=== PATIENT | female | born 1960 | race Caucasian/White ===

== ENCOUNTER 2024-04-03 11:19 | Emergency (ER) | payer MEDICARE, MEDICAID, SELFPAY ==
[2024-04-03 11:22] VITALS: BP 95/67; PULSE 97; RESP 17; TEMP 36.7; O2SAT 94
[2024-04-03 11:29] VITALS: BMI 27.4
--- NOTE | 2024-04-03 11:57 | PC.NURSE ---
Patient presents to ED via ambulance from [facility] with c/o right lower leg redness and swelling noted since t1thppr ago. Per patient MD decided today leg looked worsened and sent patient in for eval to r/o DVT. Patient is alert and oriented, ambulatory via wheelchair. Noted redness, warm and tender to touch to right lower leg from below the knee down to toe, noted on great toe x3 open wounds, non bloody, nor draining.
--- NOTE | 2024-04-03 12:24 | XR_ITS ---
Examination: Venous duplex lower extremity sonogram, bilateral. Date and time of exam: April 03, 2024 at 1239 hours INDICATIONS: Nonhealing bilateral lower leg ulcers and redness beginning 7 months ago, hypertension history Technique: Multiple sonographic images of the deep venous system have been obtained. B-mode/2-D grayscale imaging of vascular structures and Doppler spectral analysis (waveforms) and color performed Both legs are examined. Findings: Deep venous systems do not demonstrate abnormal echogenicity. All visualized deep veins exhibit compressibility. All visualized deep veins exhibit augmentation. Impression: Negative for deep vein thrombosis
--- NOTE | 2024-04-03 12:25 | PD.EDEXREM ---
ED Extremity Problem RME/HPI General Chief complaint: Extremity Problem,Nontraumatic Stated complaint: DVT Time Seen by Provider: 04/03/24 12:02 Arrival date/time: 04/03/24 11:19 RME / HPI RME / HPI Narrative: 63-year-old female patient with significant history of congestive heart failure diabetes mellitus, hypertension, was brought in by EMS for evaluation regarding bilateral lower leg swelling, chronic wound, for several months. Patient is currently on a transitional home, went to see her PCP, and was advised to come to the emergency room for swelling of the legs and chronic wound. Patient told me that she had this dry skin, swelling, and chronic ulcer to the leg for several months. Patient denies any claudication with ambulation. Patient denies any pain. Denies any fever denies any other complaints. No medication was taken prior to arrival. Related Data Previous Rx's ?Medication ?Instructions ?Recorded atorvastatin 40 mg tablet 40 mg PO QHS #30 tabs 12/20/23 blood sugar diagnostic (Accutrend #50 ea 12/20/23 Glucose test strips) blood-glucose meter (Accu-Chek #1 ea 12/20/23 Guide Glucose Meter) lancets 23 gauge (Comfort EZ #100 ea 12/20/23 Lancets) walker #1 ea 12/20/23 bumetanide 0.5 mg tablet 2 mg (4 x 0.5 mg) PO QDAY 30 days 03/07/24 #120 tabs metformin 500 mg tablet 500 mg PO BID 30 days #60 tabs 03/07/24 metoprolol succinate 25 mg 25 mg PO QDAY 30 days #30 tabs 03/07/24 tablet,extended release 24 hr sacubitril 24 mg-valsartan 26 mg 1 tab PO BID 30 days #60 tabs 03/07/24 tablet (Entresto) spironolactone 25 mg tablet 25 mg PO QDAY 30 days #30 tabs 03/07/24 doxycycline hyclate 100 mg tablet 100 mg PO BID #14 tabs 04/03/24 Allergies Allergy/AdvReac Type Severity Reaction Status Date / Time Sulfa (Sulfonamide Allergy Severe SEVERE Verified 12/20/23 10:28 Antibiotics) RESPIRATORY PROBLEMS codeine Allergy Unknown Verified 12/20/23 10:28 Penicillins Allergy Unknown Verified 12/20/23 10:28 Review of Systems Review of Systems Narrative Review of Systems: Review of system reviewed and within normal limits except mentioned in HPI ED Exam Narrative Physical exam: VITAL SIGNS: Reviewed. GENERAL APPEARANCE: Alert and interactive, follows commands, no acute distress, HEAD AND FACE: Non-traumatic. ENT: PERRL, pink conjunctivitis, eyelid no trauma, Mucous membrane moist. NECK: Supple, nontender, no nuchal rigidity. CHEST: No tenderness, no crepitus, no paradoxical movement, no retractions. LUNGS: Clear, well ventilated, symmetric, no rales, no wheezing, no ronchi, no stridor, good breath sounds bilaterally. HEART: Regular rate, regular rhythm, no murmur, no gallops. ABDOMEN: Soft, positive bowel sounds, nondistended, no guarding, nontender, no rebound, no masses, RECTAL: Deferred. GENITAL: Deferred. NEUROLOGICAL: Gross motor function intact sensory function intact, Appropriate for age. MUSCULOSKELETAL: low back nontender, full range of motion. EXTREMITIES: Bilateral lower leg swelling, +2 on the left +1 on the right, shiny, with wound on the medial aspect of the left lower leg with scabbing, and dry skin noted on the foot with old healing wound. On the left great toe. Nontender, full range of motion. Capillary refill is sluggish bilateral toes. Dorsalis pedis and posterior tibialis pulses barely palpable bilateral. SKIN: Color pink, dry, no rash, no lacerations, no abrasions, no contusions. LYMPHATICS: Deferred. Course Quality Measures none Orders Category Date Time Status CT Screening NOW Care 04/03/24 13:[address] angio abd ilio fem runoff Stat Exams 04/03/24 13:17 Completed US venous doppler LE BI Stat Exams 04/03/24 12:24 Completed B-Type Natriuretic Peptide Stat Lab 04/03/24 12:25 Completed CBC Stat Lab 04/03/24 12:25 Completed Comprehensive Metabolic Panel Stat Lab 04/03/24 12:25 Completed Lactate (Lactic Acid) Stat Lab 04/03/24 12:25 Completed Lactic Acid, 3 HR Stat Lab 04/03/24 16:06 Completed Partial Thromboplastin Time Stat Lab 04/03/24 12:25 Completed Prothrombin Time with INR Stat Lab 04/03/24 12:25 Completed Urinalysis, C/S if Indicated Stat Lab 04/03/24 19:56 Completed Doxycycline [Vibramycin] Med 04/03/24 21:10 Discontinued 100 mg PO X1 ONE Vital Signs Vital signs: Vital Signs Temperature 98.1 F 04/03/24 11:22 Pulse Rate 97 04/03/24 11:22 Respiratory Rate 17 04/03/24 11:22 Blood Pressure 95/67 04/03/24 11:22 Pulse Oximetry (%) 94 L 04/03/24 11:22 Oxygen Delivery Method Room Air 04/03/24 11:22 Extremity Problem MDM Narrative MDM Narrative:: 63-year-old female patient with significant history of congestive heart failure diabetes mellitus, hypertension, was brought in by EMS for evaluation regarding bilateral lower leg swelling, chronic wound, for several months. Patient is currently on a transitional home, went to see her PCP, and was advised to come to the emergency room for swelling of the legs and chronic wound. Patient told me that she had this dry skin, swelling, and chronic ulcer to the leg for several months however noticed some worsening redness, to the right lower extremity for the last few days. Patient denies any claudication with ambulation. Patient denies any pain. Denies any fever denies any other complaints. No medication was taken prior to arrival. Patient's laboratory workup showed no leukocytosis. CT angiogram of the abdomen and pelvis with iliofemoral runoff showed Multiple hzdr-[id number]-tldmdmdi stenoses right superficial femoral artery 90% stenosis distal right popliteal artery 90% stenosis proximal right anterior tibial artery Occlusion right posterior tibial artery 90% stenosis proximal 80% stenosis mid left superficial femoral artery Occlusion left posterior tibial artery. I spoke with vascular surgeon from [facility], Dr Perkins discussed the case in length, including CT angiogram results with iliofemoral runoff, told me that this is a chronic arterial stenosis with occlusion, and patient is not having acute ischemic symptoms right now, patient is not having any cyanosis right now, patient is not having any pain right now, patient can be discharged home and outpatient follow-up with them. I discussed the finding with patient's daughter, her name is Lily, and plan of care, including follow-up with PCP and for referral to vascular surgeon for further intervention regarding patient's arterial stenosis / occlusions as outpatient. I told her that the vascular surgeon in [facility] [place]. Perkins. Patient data External records reviewed:: None Clinical information provided by:: patient Social determinants that could affect healthcare access:: none Patient has the following chronic illnesses:: Hypertension, residual heart failure How is presenting disease/condition affected by chronic disease/condition?: exacerbated by Evaluation data The following diagnostics were reviewed and interpreted by me:: lab results and radiology exam(s) Lab and/or radiology exams considered but not ordered:: None Interpretation Summary: CT angiogram of the abdomen and pelvis with early femoral duct showed Multiple qnmp-ui-zncqglfd stenoses right superficial femoral artery 90% stenosis distal right popliteal artery 90% stenosis proximal right anterior tibial artery Occlusion right posterior tibial artery 90% stenosis proximal 80% stenosis mid left superficial femoral artery Occlusion left posterior tibial artery. Medications / Prescriptions Medications or Prescriptions considered but not ordered:: None Medication administrations:: Medication Administration History Discontinued Medications Doxycycline Hyclate (Doxycycline 100 Mg Tablet) 100 mg PO X1 ONE Stop: 04/03/24 21:11 Doxycycline Consultations Consultation(s) initiated? (list below): No Diagnosis Extremity Problem Differential Diagnosis: cellulitis, deep vein thrombosis of lower extremity and other (Peripheral artery disease) Most likely diagnosis given after review of the tests above:: Peripheral artery disease, cellulitis foot Admission Indicated Admission indicated?: not indicated Admission Request Was there a request for admission?: No Disposition Plan Disposition Plan: Discharge Discharge Attestation Discharge Attestation: The patient and all family members were given an opportunity to ask questions and understood the discharge instructions. Discharge instructions specifically effects, indications for sooner follow up or return to the emergency department, and the expected course of current diagnosis. Patient condition: Stable Discharge Plan Plan Patient Disposition: HOME (Self Care) Disposition Comment: Stable Prescriptions/Referrals Prescriptions/Med Rec: New doxycycline hyclate 100 mg tablet 100 mg PO BID Qty: 14 0RF No Action atorvastatin 40 mg tablet 40 mg PO QHS Qty: 30 3RF (DME) Accutrend Glucose test strips Strip See Rx Instructions .Route Qty: 50 6RF Rx Instructions: As directed (DME) Comfort EZ Lancets 23 gauge misc See Rx Instructions .Route Qty: 100 6RF Rx Instructions: As directed (DME) blood-glucose meter [Accu-Chek Guide Glucose Meter] Misc See Rx Instructions .Route Qty: 1 0RF Rx Instructions: As directed (DME) walker Misc See Rx Instructions .Route Qty: 1 0RF Rx Instructions: WALKER WITH SEAT: The patient has dyspnea on walking 7-8 steps and needs to seat after that. So please provide walker with seat. spironolactone 25 mg Tablet 25 mg PO QDAY 30 Days Qty: 30 0RF bumetanide 0.5 mg Tablet 2 mg PO QDAY 30 Days Qty: 120 0RF metoprolol succinate 25 mg Tablet Extended Release 24 Hr 25 mg PO QDAY 30 Days Qty: 30 0RF Entresto 24-26 mg Tablet 1 tab PO BID 30 Days Qty: 60 0RF metformin 500 mg Tablet 500 mg PO BID 30 Days Qty: 60 0RF Referrals: No Primary/Family,Physician [Primary Care Provider] - In 1 week Problem List Clinical Impression: Cellulitis of foot, Peripheral arterial disease Patient/Caregiver Discharge Instructions Discharge Activity: activity as tolerated Education Materials: ED Cellulitis, ED Peripheral Artery Disease (PAD) Additional Instructions: Thank you for the opportunity for serving you today. You are stable for discharged . You are advised to: Follow-up with your PCP in 1 to 2 days and asked for referral to vascular surgeon regarding your chronic stenosis of your lower extremity arteries Return to ED for worsening of symptoms Increase oral fluids Take medication as prescribed Print Language: Gibraltarian Stand Alone Forms: Johanna Award Info., Patient Portal Info Letter PA/LAWRENCE Supervising Physician PA/LAWRENCE Supervising Physician: MD Brittany
[2024-04-03 12:35] LABS: Lactate (Lactic Acid) 2.6 mMol/L (0.4-2.0)
[2024-04-03 12:40] LABS: Basophils % (Auto) 1 % (0-2.5); Eosinophils # (Auto) 0.1 Thou/mm3 (0.0-0.5); Eosinophils % (Auto) 1 % (0-10); Hematocrit 39.7 % (36.0-46.0); Hemoglobin 12.2 g/dL (12.0-16.0); Immature Granulocytes % (Auto) 0 % (0-0); Immature Granulocytes Auto 0.03 Thou/mm3 (0.00-0.00); Lymphocytes # (Auto) 1.2 Thou/mm3 (1.0-4.8); Lymphocytes % (Auto) 15 % (10-50); Mean Corpuscular HGB Conc 30.7 g/dl (31.0-37.0); Mean Corpuscular Hemoglobin 23.6 pg (25.0-35.0); Mean Corpuscular Volume 77 fL (80-100); Monocytes # (Auto) 0.8 Thou/mm3 (0.0-0.8); Monocytes % (Auto) 10 % (0-12); Neutrophils # (Auto) 5.7 Thou/mm3 (1.8-7.7); Neutrophils % (Auto) 73 % (37-80); Nucleated Red Blood Cell % 0 /100 WBC (0); Platelet Count 409 Thou/mm3 (140-440); RDW Standard Deviation 54.9 fL (36.4-46.3); Red Blood Count 5.18 Miln/mm3 (4.00-5.20); White Blood Count 7.8 Thou/mm3 (3.6-11.0)
[2024-04-03 12:53] LABS: INR 1.1 (0.9-1.3); Partial Thromboplastin Time 27.3 Seconds (22.0-36.0); Prothrombin Time 11.9 Seconds (9.0-12.2)
[2024-04-03 13:03] LABS: B-Type Natriuretic Peptide 3080 pg/mL (0-100)
[2024-04-03 13:10] LABS: Alanine Aminotransferase 13 U/L (10-49); Albumin, Serum 4.4 gm/dL (3.4-4.8); Albumin/Globulin Ratio 1.4 (1.2-2.2); Alkaline Phosphatase 154 U/L (46-116); Anion Gap 9 (7-16); Aspartate Amino Transferase 17 U/L (0-34); BUN/Creatinine Ratio 31 Ratio (12-20); Bilirubin,Total 0.8 mg/dL (0.3-1.2); Blood Urea Nitrogen 34 mg/dL (9-23); Calcium 9.4 mg/dL (8.3-10.6); Calcium (Corrected) 9.4 mg/dL (8.5-10.1); Chloride 101 mMol/L (98-107); Creatinine (Component) 1.1 mg/dL (0.6-1.3); Estimated Creatinine Clearance 51.1 mL/min (>60); Globulin 3.1 gm/dL (2.3-3.5); Glucose 214 mg/dL (74-106); Osmolality,Calculated 285 (275-295); Potassium 4.5 mMol/L (3.4-5.1); Sodium 136 mMol/L (136-145); Total Protein 7.5 gm/dL (5.7-8.2); eGFR 56 See Note
[2024-04-03 13:17] VITALS: BP 111/84; PULSE 91; RESP 21; TEMP 36.4; O2SAT 94
--- NOTE | 2024-04-03 13:17 | XR_ITS ---
Examination: CTA abdominal aorta iliofemoral runoff. 2-D sagittal coronal reconstructions. 3-D reconstructions, vascular April 03, 2024 1533 hours INDICATIONS: Nonhealing leg ulcers one month Technique: Multiple CTA images of the abdominal aorta iliofemoral runoff arterial vessels, 2.0 mm slice thickness, post intravenous administration 130 cc [id number] 2-D sagittal coronal reconstructions. 3-D reconstructions, vascular 3-D postprocessing, including vascular maximum intensity projection images, 3-D volume rendering Low dose protocols were performed. One or more of the following dose reduction techniques were used; automated exposure control, adjustment of the mA and/or KV according to patient size, use of iterative reconstruction technique. Findings: Mild enlargement cardiac contour Liver irregular in contour with mild ascites Suspicious for tiny gallstones Spleen is not enlarged No pancreatic mass Severely scarred bilateral kidneys with subtle areas of nodular enhancement in the left kidney No hydronephrosis No bowel obstruction Tiny fat-containing umbilical hernia No pelvic mass Bladder intact Heavy abdominal aortic calcification No critical stenoses origins celiac or superior mesenteric axes or origins renal arteries No infrarenal abdominal aortic aneurysm Calcifications external iliac common iliac and common femoral arteries Multiple paek-fg-mkigakjt stenoses right superficial femoral artery 90% stenosis distal right popliteal artery 90% stenosis proximal right anterior tibial artery Occlusion right posterior tibial artery 90% stenosis proximal left superficial femoral artery 80% stenosis mid left superficial femoral artery Occlusion left posterior tibial artery Left anterior tibial artery main continuation trunk fill to the ankle IMPRESSION: Multiple [id number]-fh-[id number] stenoses right superficial femoral artery 90% stenosis distal right popliteal artery 90% stenosis proximal right anterior tibial artery Occlusion right posterior tibial artery 90% stenosis proximal 80% stenosis mid left superficial femoral artery Occlusion left posterior tibial artery.
[2024-04-03 15:26] VITALS: BP 93/61; PULSE 94; RESP 18; TEMP 36.6; O2SAT 95
[2024-04-03 15:34] LABS: Reflex Lactate? Y
[2024-04-03 16:20] LABS: Lactic Acid, 3 HR 1.5 mMol/L (0.4-2.0)
[2024-04-03 18:16] VITALS: BP 111/76; PULSE 97; RESP 18; TEMP 36.6; O2SAT 95
[2024-04-03 19:43] VITALS: BP 97/64; PULSE 104; RESP 18; O2SAT 94
[2024-04-03 20:15] LABS: Collection Type, Urine Clean Catch
[2024-04-03 20:31] LABS: Bilirubin,Urine Negative (Negative); Blood,Urine Negative (Negative); Clarity,Urine Clear (Clear/Hazy); Color,Urine Lt-Yellow (Lt Yel-Yel); Culture Indicated,Urine Not Indicated; Glucose, Urine Negative (Negative); Ketones,Urine Negative (Negative); Leukocyte Esterase,Urine Negative (Negative); Nitrite,Urine Negative (Negative); PH,Urine 6.5 (5.0-7.0); Protein,Urine 1+ (Neg - Trace); RBC,Urine 3 /hpf (0-3); Specific Gravity,Urine 1.039 (1.001-1.035); Squamous Epithelial Cell,Urine 1 /hpf (0-5); Urobilinogen,Urine Negative mg/dL (0.0-1.0); WBC,Urine < 1 /hpf (0-5)
[2024-04-03] MEDS: DOXYCYCLINE 100 MG TABLET PO (22:29)
--- NOTE | 2024-04-03 22:44 | PC.NURSE ---
[facility]
== END 2024-04-03 23:14 | disposition home or self-care (01) ==
PROVIDERS: Nurse Practitioner Family; Emergency Provider Emergency Medicine
DX: E11.51 Type 2 diabetes mellitus with diabetic peripheral angiopathy without gangrene (principal); I73.9 Peripheral vascular disease, unspecified; L03.116 Cellulitis of left lower limb; L03.115 Cellulitis of right lower limb; Z79.84 Long term (current) use of oral hypoglycemic drugs
CPT/HCPCS: 36415; 75635; 80053; 81001; 83605; 83880; 85025; 85610; 85730; 93970; 99285; A4649; Q9967; A9270

== ENCOUNTER 2024-07-09 14:27 | Outpatient (AMB) | payer MEDICARE, MEDICAID, SELFPAY ==
[2024-07-09 14:37] VITALS: BP 83/55; PULSE 103; RESP 16; TEMP 36.8; O2SAT 93; BMI 25.8
--- NOTE | 2024-07-09 14:37 | PD.RESCLINIC ---
Vital Signs 07/09/24 14:37 Height 1.57 m Height Method Stated Weight 64.07 kg Weight Measurement Method Standing Scale BMI 25.8 BP 83/55 L Blood Pressure Source Automatic Cuff Blood Pressure Location Right Upper Arm Position Sitting Respiration 16 Pulse 103 H Pulse Source Monitor Temp 98.2 F Temp Source Temporal Artery Scan Pulse Oximetry (%) 93 L Oxygen Delivery Method Room Air Allergies/Meds Allergies & Medications Allergies Sulfa (Sulfonamide Antibiotics) Allergy (Severe, Verified 07/09/24 14:41) SEVERE RESPIRATORY PROBLEMS codeine Allergy (Unknown, Verified 07/09/24 14:41) Penicillins Allergy (Unknown, Verified 07/09/24 14:41) Medication Reconciliation atorvastatin 40 mg tablet 40 mg PO QHS #30 tabs 12/20/23 [Rx Confirmed 07/09/24] blood sugar diagnostic (Accutrend Glucose test strips) #50 ea 12/20/23 [Rx Confirmed 07/09/24] blood-glucose meter (Accu-Chek Guide Glucose Meter) #1 ea 12/20/23 [Rx Confirmed 07/09/24] lancets 23 gauge (Comfort EZ Lancets) #100 ea 12/20/23 [Rx Confirmed 07/09/24] walker #1 ea 12/20/23 [Rx Confirmed 07/09/24] doxycycline hyclate 100 mg tablet 100 mg PO BID #14 tabs 04/03/24 [Rx Confirmed 07/09/24] acetaminophen 500 mg tablet (Tylenol Extra Strength) 500 mg PO Q8HR PRN pain 30 days #90 tabs 07/09/24 [Rx] atorvastatin 40 mg tablet 40 mg PO QHS 30 days #30 tabs 07/09/24 [Rx] bumetanide 1 mg tablet 1 mg PO QDAY #30 tabs 07/09/24 [Rx] cyclobenzaprine 5 mg tablet 5 mg PO TID PRN muscle spasm #30 tabs 07/09/24 [Rx] metformin 500 mg tablet 500 mg PO BID #60 tabs 07/09/24 [Rx] metoprolol succinate 25 mg tablet,extended release 24 hr 25 mg PO QDAY #30 tabs 07/09/24 [Rx] ondansetron HCl 4 mg tablet 4 mg PO Q6H PRN nausea and vomiting #90 tabs 07/09/24 [Rx] sacubitril 24 mg-valsartan 26 mg tablet (Entresto) 1 tab PO BID #60 tabs 07/09/24 [Rx] spironolactone 25 mg tablet 25 mg PO QDAY #30 tabs 07/09/24 [Rx] MA Intake Visit Data Collection New Patient or Established: Established Patient (seen at [facility] within 3 years) Seen by Clinical Staff ONLY (RN/MA): No Pain Present Currently: No Pain scale:: 0 Pain Scale Used: Baird-Liz/Numerical Terrazzo Polisher Required: No PCP or OBGYN visit in last 3 months: No Hx Now: No Do You Feel Safe at Home: Yes Authorities Contacted: N/A Smoking Status Smoking Status: Former smoker Immunization / Flu Flu Vaccine in the Last 12 Months: No Flu Vaccine Exclusion Criteria: No Exclusion Criteria Past Medical History Past Medical History NEUROLOGIC: Negative Dementia, Alzheimer's Disease, Seizures, Epilepsy or Head Trauma CARDIAC: Positive Hypercholesterolemia, Edema and Hypertension; Negative Cardiac Disorders, Angina or Congestive Heart Failure RESPIRATORY: Positive Asthma; Negative Chronic Obstructive Pulmonary Disease (COPD) or Sleep Apnea GASTROINTESTINAL: Positive Ulcer; Negative Gastrointestinal Disorders, Gall Bladder Disease or Hemorrhoids GENITOURINARY: Negative Genitourinary Disorders or Renal Disease REPRODUCTIVE: Negative Genital Herpes, Gonorrhea, Pelvic Inflammatory Disease or Syphilis MUSCULOSKELETAL: Positive Degenerative Disk Disease and Carpal Tunnel Syndrome; Negative Osteoporosis ENT: Negative Glaucoma, Ear Infection or Head Trauma ENDOCRINE: Positive Endocrine Disorders and Diabetes Mellitus Type 2; Negative Diabetes Mellitus Type 1 HEMATOLOGIC: Negative Blood Disorders, Anemia or Sickle Cell Disease PSYCHO/SOCIAL: Negative Depression, Anxiety or Post Traumatic Stress Disorder OTHER HISTORY: Negative Hospitalization, Falls, Blood Transfusions, Anesthesia Reactions, Chicken Pox, Cancer or Lung Cancer Family History FAMILY HISTORY: Negative Family Cardiac Disorders Surgical History SURGICAL: Positive Mastectomy and Section; Negative Cardiac Surgery, Open Heart Surgery, Cardiac Catheterization, Pacemaker, Endocrine Surgery, Ear Surgery, Abdominal Surgery, Nephrectomy or Joint Replacement Social History SMOKING STATUS: Smoking status: Former smoker SECOND HAND EXPOSURE: second hand exposure: No ALCOHOL: Alcohol Intake: Never ALCOHOL FREQUENCY: Alcohol Intake Frequency: A Few Times a Month HOUSING: Housing: Mobile Home LIVES WITH: Lives With: Alone Patient Portal Questionyaakov Social History Living Situation History Housing: Mobile Home Housing Other:: Patient resides alone with her dog. Tobacco History Smoking Status: Former smoker Packs per Day: 1 Second Hand Smoke Exposure: No Alcohol History Alcohol Intake: Never Alcohol Intake Frequency: A Few Times a Month Substance Use History Substance Use: meth Domestic Abuse History Do You Feel Safe at Home: Yes Review of Systems Report any current symptoms Only answer those that you have currently: Past Medical History Past Medical History Have you ever been diagnosed with any of the following: Neurological Problems Dementia: No Alzheimer's Disease: No Seizures: No Epilepsy: No Head Trauma: No Cardiology Problems Angina: No Hypercholesterolemia: Yes Congestive Heart Failure: No Edema: Yes Hypertension: Yes Respiratory Problems Chronic Obstructive Pulmonary Disease (COPD): No Asthma: Yes Sleep Apnea: No Stomache/Intestinal Problems Gall Bladder Disease: No Ulcer: Yes Hemorrhoids: No Genital/Urinary Problems Renal Disease: No Reproductive Problems Genital Herpes: No Gonorrhea: No Pelvic Inflammatory Disease: No Syphilis: No Musculoskeletal Problems Osteoporosis: No Degenerative Disk Disease: Yes Carpal Tunnel Syndrome: Yes Head,Eye,Nose,Throat Problems Glaucoma: No Chronic Ear Infections: No Endocrine Problems Diabetes Mellitus Type 1: No Diabetes Mellitus Type 2: Yes Blood Problems Anemia: No Sickle Cell Disease: No Psychologic Problems Depression: No Anxiety: No Post Traumatic Stress Disorder: No Other Problems Hospitalization: No Falls: No Blood Transfusions: No Anesthesia Reactions: No Chicken Pox: No Cancer: No Lung Cancer: No Surgical History Pacemaker: No History of Present Illness HPI Narrative Germania Avina is a 63-year-old female with a past medical history of hypertension, hyperlipidemia, type 2 diabetes mellitus, COPD, HFrEF (EF 30% on 02/2024), and PAD who presents to [facility] with her daughter for home health referral for physical therapy. She was recently discharged from [facility] on 02/2024, in which she was found to have an acute compression fracture of L3 lumbar spine, and was then [facility] until mid May. While there, she was sent to the ED to be evaluated for chronic lower extremity wounds and was found to have PAD diagnosed by CTA with runoff on 03/2024. She was making good progress with rehab, but since leaving she has started to become more weak per daughter, hence prompting visit for home health referral. Of note, patient has already seen a vascular surgeon who recommended to undergo additional imaging to further evaluate blood flow to legs. She is also seeing an orthopedic surgeon who believes she may have a rotator cuff tear and is to undergo MRI for further evaluation. Otherwise, no other complaints and medication refills sent for 1 month until patient can then establish care with [facility] in July. Blood pressure also noted to be 83/55 in clinic and advised to obtain blood pressure cuff in order to monitor daily. Advised to hold taking Bumex 1 mg daily if BP is less than 90/60 and to be cautious when moving or standing from seated position given recently diagnosed PAD and weakness after leaving rehab center. Review of Systems Review of Systems Systems Reviewed: All systems reviewed, normal except as documented Objective/Exam Narrative Physical exam: General: AOx3, in wheelchair, no acute distress, able to speak full sentences HEENT: NC/AT, mucous membranes moist, bilateral sclera anicteric Cardiovascular: regular rate and rhythm, S1/S2 present, no murmurs appreciated Pulmonary: clear to auscultation bilaterally, no rales/rhonchi/wheezes Abdominal: soft, non-tender, non-distended, no rebound/guarding, normal bowel sounds present Musculoskeletal: peripheral edema Skin: warm and dry, intact, no rashes Head Head exam: atraumatic Assessment & Plan Diagnosis / Problem List (1) Compression fracture of lumbar vertebra: Status: Acute Qualifiers: Lumbar vertebra fracture level: L3 Encounter type: subsequent encounter Fracture healing: with routine healing Qualified Code(s): S32.030D - Wedge compression fracture of third lumbar vertebra, subsequent encounter for fracture with routine healing Assessment & Plan: Diagnosed in 02/2024 and has undergone PT at [facility] from February until mid May and comes to [facility] for referral to home health in order to continue PT. Plan: - PT and home health referral sent - Home health agency to reach out to patient (2) Rotator cuff rupture: Status: Acute Qualifiers: Rotator cuff tear extent: unspecified tear extent Rotator cuff tear trauma status: unspecified whether traumatic Laterality: right Qualified Code(s): M75.101 - Unspecified rotator cuff tear or rupture of right shoulder, not specified as traumatic Plan: - Follow-up with orthopedic surgeon - Follow-up MRI per orthopedic surgeon (3) CHF (congestive heart failure): Status: Acute Qualifiers: Heart failure type: systolic Heart failure chronicity: chronic Qualified Code(s): I50.22 - Chronic systolic (congestive) heart failure Assessment & Plan: Companesated as there is no SOB or crackles/BLE edema on exam Plan: - Continue GDMT - metoprolol succinate ER 25 mg daily - spironolactone 25 mg daily - entresto 24-26 mg BID Office Procedures [facility] Level of Care Nursing/Assessment Patient Status: Established Patient Nursing Assessment/Reassessment: Medication Reconciliation, Update PMH in EMR and Vital Signs Coordination of Care: Complex Care and Chronic Disease 1-5, Consent,records obtained, informed consent, Education Simp Pt/Fam, Ref for ancillary service and Staff clarify orders Established Patient Charge Established Patient Point Assignment: 105 Established Patient Point Charge: EP Level 3 (80-115)
== END 2024-07-09 15:00 | disposition home or self-care (01) ==
LOC: HODAHC 14:27
PROVIDERS: Supervising Provider Internal Medicine
DX: S32.030D Wedge compression fracture of third lumbar vertebra, subsequent encounter for fracture with routine healing (principal); X58.XXXD Exposure to other specified factors, subsequent encounter; M75.101 Unspecified rotator cuff tear or rupture of right shoulder, not specified as traumatic; I11.0 Hypertensive heart disease with heart failure; I50.9 Heart failure, unspecified; E11.9 Type 2 diabetes mellitus without complications; J44.9 Chronic obstructive pulmonary disease, unspecified; I73.9 Peripheral vascular disease, unspecified
CPT/HCPCS: 99213; G0463

== ENCOUNTER → 2024-07-10 | Outpatient (CLI) | payer MEDICARE, MEDICAID, SELFPAY ==
[2024-07-09 18:55] LABS: Blood Urea Nitrogen 36 mg/dL (9-23); Creatinine (Component) 1.1 mg/dL (0.6-1.3); eGFR 56 See Note
--- NOTE | 2024-07-10 11:30 | XR_ITS ---
Examination: CTA abdominal aorta iliofemoral runoff. 2-D sagittal coronal reconstructions. 3-D reconstructions, vascular Exam date and time: 2024 1202 hrs. Indications: Bilateral leg swelling and pain beginning one year ago Technique: Multiple CTA images of the abdominal aorta iliofemoral runoff arterial vessels, 2.0 mm slice thickness, post intravenous administration 130 cc [id number] 2-D sagittal coronal reconstructions. 3-D reconstructions, vascular 3-D postprocessing, including vascular maximum intensity projection images, 3-D volume rendering Low dose protocols were performed. One or more of the following dose reduction techniques were used; automated exposure control, adjustment of the mA and/or KV according to patient size, use of iterative reconstruction technique. Findings: Mild enlargement cardiac contour Liver is irregular in contour with fatty infiltration No gallstones Posterior left renal irregularity enhancing mass 5.3 x 4.8 cm No bowel obstruction. Normal appendix Colonic diverticulosis Intact urinary bladder Calcification abdominal aorta no aneurysm dilatation No critical stenoses common iliac and external iliac or common femoral arteries 50% stenosis short segment distal right superficial femoral artery axial image 123 Attenuated popliteal artery with 70% stenosis distal right popliteal artery image 531 Occlusion right posterior tibial artery proximally Severely attenuated right anterior tibial and main continuation trunk, no filling of the distal most right anterior tibial artery 90% stenosis proximal left superficial femoral artery axial image 294 90% short segment stenosis mid left superficial femoral artery axial image 397 Attenuated popliteal artery Occlusion proximal left posterior tibial artery Severely attenuated anterior tibial and main continuation trunk arteries with no filling of either artery distally Impression: Significant stenoses bilateral superficial femoral arteries Severe obstructive arterial disease and trifurcation arteries bilaterally
== END | disposition home or self-care (01) ==
PROVIDERS: Referring Provider Surgery Vascular Surgery; Visit Provider Surgery Vascular Surgery
DX: I70.213 Atherosclerosis of native arteries of extremities with intermittent claudication, bilateral legs (principal); I77.6 Arteritis, unspecified
CPT/HCPCS: 36415; 75635; 82565; 84520; A4649; Q9967

== ENCOUNTER → 2024-10-22 | Outpatient (CLI) | payer MEDICARE, MEDICAID, SELFPAY ==
--- NOTE | 2024-10-22 14:00 | XR_ITS ---
Examination: CT chest, without intravenous contrast. Sagittal and coronal 2-D reconstructions. Exam date and time: October 22, 2024 1506 hours INDICATIONS: Smoking history 47 years COMPARISON: December 18, 2023 CTDI:vol (mGy) 10.3 DLP: (mGycm) 356 Technique: Multiple 3.0 mm axial sections of the chest to been obtained. Bone and lung density settings are obtained. Sagittal and coronal 2-D reconstructions have been obtained. Low dose protocols were performed. One or more of the following dose reduction techniques were used; automated exposure control, adjustment of the mA and/or KV according to patient size, use of iterative reconstruction technique. Findings: No thoracic aortic aneurysm dilatation Pulmonary artery segments are not enlarged Heavy mitral valvular calcification 3 mm pleural-based pulmonary nodule left lower lobe image 148 8mm pulmonary nodule right lower lobe image 149 2 mm pulmonary nodule right middle lobe image 191 Small right pleural effusion No visualized liver or splenic lesions Nodular thickening left adrenal gland IMPRESSION: Noncalcified pulmonary nodules as above, recommend continued 6 month follow-up CT chest without contrast
--- NOTE | 2024-10-22 14:14 | XR_ITS ---
Examination: Shoulder,right, 3 views Technique: Shoulder AP internal rotation, AP external rotation, Y view shoulder, 3 views Exam date and time :October 22, 2024 1422 hours INDICATIONS: Patient fell 6 months ago with injury to the shoulder, shoulder pain. FINDINGS: Prominent osteopenia. Moderate to advanced narrowing glenohumeral joint No shoulder fracture or dislocation IMPRESSION: No shoulder fracture or dislocation
--- NOTE | 2024-10-22 14:14 | XR_ITS ---
Examination: Right wrist 2 views Technique one AP lateral right wrist 2 views Date and time: October 22, 2024 1437 hours INDICATIONS: Patient fell 6 months ago with intravenous, wrist pain. FINDINGS: Prominent osteopenia No acute fracture No wrist dislocation IMPRESSION: No acute fracture Mild to moderate osteoarthritis first carpometacarpal joint
--- NOTE | 2024-10-22 14:14 | XR_ITS ---
Examination: Hand, right 3 views Technique: Hand AP, oblique, lateral 3 views Date and time of exam: October 22, 2024 1422 hours INDICATIONS: Patient fell 6 months ago with into the right hand, right hand pain. FINDINGS: Moderate osteopenia. Mild to moderate osteoarthritis first carpometacarpal joint, interphalangeal joint first digit, distal interphalangeal joints second through fifth digits Old deformity ungual tuft tip distal phalanx index finger IMPRESSION: Osteoarthritis as above
== END | disposition home or self-care (01) ==
PROVIDERS: PCP Internal Medicine; Referring Provider Internal Medicine; Visit Provider Internal Medicine
DX: S49.91XA Unspecified injury of right shoulder and upper arm, initial encounter (principal); M18.11 Unilateral primary osteoarthritis of first carpometacarpal joint, right hand; X58.XXXA Exposure to other specified factors, initial encounter; R91.8 Other nonspecific abnormal finding of lung field; F17.210 Nicotine dependence, cigarettes, uncomplicated
CPT/HCPCS: 71250; 73030; 73100; 73130

== ENCOUNTER → 2024-11-04 | Outpatient (CLI) | payer MEDICARE, MEDICAID, SELFPAY ==
--- NOTE | 2024-11-04 16:54 | XR_ITS ---
Examination: PA lateral chest 2 views Technique whereby PA lateral chest 2 views Date and time: November 04, 2024 1703 hours Comparison February 29, 2024 INDICATIONS: Coughing shortness of breath beginning 2 months ago. FINDINGS: Normal heart size 30 mm possible pulmonary nodule in the left upper lobe Prominent hilar regions 10 mm 4 mm pulmonary nodules right upper lobe No left-sided rib fractures IMPRESSION: Recommend CT chest without contrast follow-up to confirm bilateral pulmonary masses
== END | disposition home or self-care (01) ==
PROVIDERS: PCP Internal Medicine
DX: R91.8 Other nonspecific abnormal finding of lung field (principal)
CPT/HCPCS: 71046

== ENCOUNTER 2024-11-23 19:54 | Emergency (ER) | payer MEDICARE, MEDICAID, SELFPAY ==
[2024-11-23 20:06] VITALS: BP 114/78; PULSE 106; PULSE 71; RESP 15; RESP 16; TEMP 36.6; O2SAT 97; O2SAT 99; BMI 26.6
--- NOTE | 2024-11-23 20:17 | PD.EDGIBLD ---
ED GI Bleed RME/HPI General Chief complaint: Nausea/Vomiting/Diarrhea Stated complaint: VOMITTING Time Seen by Provider: 11/23/24 20:10 Arrival date/time: 11/23/24 19:54 RME / HPI RME / HPI Narrative: DR. PICKETT MAIN ED EVALUATION: 64 y/o female with Hx of smoking, alcohol and recreational drug use, and CHF presents to ED c/o coffee ground emesis x approximately 24 hours. Denies tarry or bloody stool. Denies abdominal pain. Denies history of stomach bleed or ulcer. Also denies use of blood thinner. Patient is medication compliant but admits to not taking her medications today. No other cocnerns or complaints expressed at this time. Related Data Previous Rx's ?Medication ?Instructions ?Recorded atorvastatin 40 mg tablet 40 mg PO QHS #30 tabs 12/20/23 walker #1 ea 12/20/23 doxycycline hyclate 100 mg tablet 100 mg PO BID #14 tabs 04/03/24 bumetanide 1 mg tablet 1 mg PO QDAY #30 tabs 07/09/24 cyclobenzaprine 5 mg tablet 5 mg PO TID PRN muscle spasm #30 07/09/24 tabs metformin 500 mg tablet 500 mg PO BID #60 tabs 07/09/24 metoprolol succinate 25 mg 25 mg PO QDAY #30 tabs 07/09/24 tablet,extended release 24 hr ondansetron HCl 4 mg tablet 4 mg PO Q6H PRN nausea and 07/09/24 vomiting #90 tabs sacubitril 24 mg-valsartan 26 mg 1 tab PO BID #60 tabs 07/09/24 tablet (Entresto) spironolactone 25 mg tablet 25 mg PO QDAY #30 tabs 07/09/24 blood sugar diagnostic (Accutrend #50 ea 07/16/24 Glucose test strips) blood-glucose meter (Accu-Chek #1 ea 07/16/24 Guide Glucose Meter) lancets 23 gauge (Comfort EZ #100 ea 07/16/24 Lancets) ondansetron 4 mg disintegrating 4 mg PO Q6H PRN nausea and 11/23/24 tablet vomiting #20 tabs pantoprazole 40 mg tablet,delayed 40 mg PO QDAY #30 tabs 11/23/24 release (Protonix) Allergies Allergy/AdvReac Type Severity Reaction Status Date / Time Sulfa (Sulfonamide Allergy Severe SEVERE Verified 07/09/24 14:41 Antibiotics) RESPIRATORY PROBLEMS codeine Allergy Unknown Verified 07/09/24 14:41 Penicillins Allergy Unknown Verified 07/09/24 14:41 Review of Systems Review of Systems Systems Reviewed: All systems reviewed, normal except as documented Past Medical History Past Medical History CARDIAC: Positive Hypercholesterolemia, Edema and Hypertension RESPIRATORY: Positive Asthma GASTROINTESTINAL: Positive Ulcer MUSCULOSKELETAL: Positive Degenerative Disk Disease and Carpal Tunnel Syndrome ENDOCRINE: Positive Endocrine Disorders and Diabetes Mellitus Type 2 Surgical History SURGICAL: Positive Mastectomy and Section Social History SMOKING STATUS: Current every day smoker SUBSTANCE USE: unknown SUBSTANCE LAST USED: unknown ALCOHOL: Current ED Exam Narrative Physical exam: Generally patient is alert slightly ill-appearing but no obvious distress heart shows a heart rate of approximately 100 and in a regular rhythm, lungs clear to auscultation equal bilaterally abdomen soft bowel sounds present nondistended and nontender. Skin is warm pale and dry rectal exam done with sap basis consultant shows light brown-colored stool no gross blood guaiac negative neurologic exam shows no focal motor deficits. Course Quality Measures none Orders Category Date Time Status CBC Stat Lab 11/23/24 20:18 Completed CMP [Comprehensive Metabolic Panel] Stat Lab 11/23/24 20:18 Completed PT [Prothrombin Time with INR] Stat Lab 11/23/24 20:18 Completed Ondansetron Inj [Zofran Inj] Med 11/23/24 20:19 Discontinued 4 mg IVP X1 ONE Pantoprazole Inj [Protonix Inj] Med 11/23/24 20:19 Discontinued 40 mg IVP X1 ONE Vital Signs Vital signs: Vital Signs Temperature 97.8 F 11/23/24 20:06 Pulse Rate 106 H 11/23/24 20:06 Respiratory Rate 16 11/23/24 20:06 Blood Pressure 114/78 11/23/24 20:06 Pulse Oximetry (%) 97 11/23/24 20:06 Oxygen Delivery Method Room Air 11/23/24 20:06 PROCEDURES: Stool Hemoccult Procedural Steps Taken: stool placed in appropriate test area, developer placed on stool and control areas and controls appropriately positive and negative Hemoccult result: negative GI Bleed MDM Narrative MDM Narrative:: Scribe Attestation: Brooke Rey am scribing for and in the presence of Dr. Pickett. Provider Notation: Although this document has been carefully reviewed, there may still be some phonetic and other typographical errors.? These errors are purely grammatical due to imperfections in the software program and should not be construed in any way to? compromise the substance of the patient's medical care during this visit. Patient is not anemic with a hemoglobin at 13. Platelet count is normal. PTT is normal. BUN is 26 with a previous BUN of 36. Patient did not vomit here in the emergency room. She was given Zofran 4 mg IV and Protonix 40 mg IV. She is not hypotensive. She may have a degree of gastritis. She will be discharged on Zofran and Protonix to be taken as prescribed. Follow-up with her doctor. Return to ER as needed or if condition worsens. Patient data External records reviewed:: [facility] previous records (Reviewed prior ED records from 04/03/24 12:25 Cellulitis of foot.) and EMS form Clinical information provided by:: patient and EMS Social determinants that could affect healthcare access:: substance use (and alcohol use) Patient has the following chronic illnesses:: Hypercholesterolemia, Edema, Hypertension, Asthma, Ulcer, Degenerative Disk Disease, Carpal Tunnel Syndrome, Diabetes Mellitus Type 2 How is presenting disease/condition affected by chronic disease/condition?: exacerbated by Evaluation data The following diagnostics were reviewed and interpreted by me:: lab results Lab and/or radiology exams considered but not ordered:: None Interpretation Summary: None Medications / Prescriptions Medications or Prescriptions considered but not ordered:: None Medication administrations:: Medication Administration History Discontinued Medications Ondansetron HCl (Ondansetron Inj 2 Mg/Ml Inj 2 Ml) 4 mg IVP X1 ONE; Protocol Stop: 11/23/24 20:20 Last Admin: 11/23/24 20:37 Dose: 4 mg Documented By: EVELYN Pantoprazole Sodium (Pantoprazole Inj 40 Mg Vial) 40 mg IVP X1 ONE Stop: 11/23/24 20:20 Last Admin: 11/23/24 20:37 Dose: 40 mg Documented By: EVELYN See above if any. Consultations Consultation(s) initiated? (list below): No Diagnosis GI bleed differential diagnosis: esophageal varices, gastritis and Upper gastrointestinal hemorrhage Most likely diagnosis given after review of the tests above:: None Admission Indicated Admission indicated?: not indicated Explain why admission is indicated or not indicated:: Patient does not meet admission criteria. Admission Request Was there a request for admission?: No Disposition Plan Disposition Plan: Discharge Discharge Attestation Discharge Attestation: The patient and all family members were given an opportunity to ask questions and understood the discharge instructions. Discharge instructions specifically effects, indications for sooner follow up or return to the emergency department, and the expected course of current diagnosis. Patient condition: Stable Discharge Plan Plan Patient Disposition: HOME (Self Care) Prescriptions/Referrals Prescriptions/Med Rec: New ondansetron 4 mg tablet,disintegrating 4 mg PO Q6H PRN (Reason: nausea and vomiting) Qty: 20 0RF pantoprazole [Protonix] 40 mg tablet,delayed release (DR/EC) 40 mg PO QDAY Qty: 30 0RF No Action atorvastatin 40 mg tablet 40 mg PO QHS Qty: 30 3RF (DME) walker Misc See Rx Instructions .Route Qty: 1 0RF Rx Instructions: WALKER WITH SEAT: The patient has dyspnea on walking 7-8 steps and needs to seat after that. So please provide walker with seat. ondansetron HCl 4 mg tablet 4 mg PO Q6H PRN (Reason: nausea and vomiting) Qty: 90 0RF cyclobenzaprine 5 mg tablet 5 mg PO TID PRN (Reason: muscle spasm) Qty: 30 0RF metoprolol succinate 25 mg tablet extended release 24 hr 25 mg PO QDAY Qty: 30 0RF metformin 500 mg tablet 500 mg PO BID Qty: 60 0RF spironolactone 25 mg tablet 25 mg PO QDAY Qty: 30 0RF Entresto 24-26 mg tablet 1 tab PO BID Qty: 60 0RF bumetanide 1 mg tablet 1 mg PO QDAY Qty: 30 0RF (DME) Accutrend Glucose test strips Strip See Rx Instructions .Route Qty: 50 6RF Rx Instructions: As directed (DME) blood-glucose meter [Accu-Chek Guide Glucose Meter] Misc See Rx Instructions .Route Qty: 1 0RF Rx Instructions: As directed (DME) Comfort EZ Lancets 23 gauge misc See Rx Instructions .Route Qty: 100 6RF Rx Instructions: As directed doxycycline hyclate 100 mg tablet 100 mg PO BID Qty: 14 0RF Referrals: No Primary/Family,Physician [Primary Care Provider] - In 1 week Problem List Clinical Impression: UGIB (upper gastrointestinal bleed), Gastritis Patient/Caregiver Discharge Instructions Print Language: Swiss Stand Alone Forms: Johanna Award Info., Patient Portal Info Letter
[2024-11-23 20:36] LABS: Basophils # (Auto) 0.0 Thou/mm3 (0.0-0.2); Basophils % (Auto) 0 % (0-2.5); Eosinophils # (Auto) 0.0 Thou/mm3 (0.0-0.5); Eosinophils % (Auto) 0 % (0-10); Hematocrit 42.9 % (36.0-46.0); Hemoglobin 13.8 g/dL (12.0-16.0); Immature Granulocytes Auto 0.05 Thou/mm3 (0.00-0.00); Lymphocytes # (Auto) 1.2 Thou/mm3 (1.0-4.8); Lymphocytes % (Auto) 10 % (10-50); Mean Corpuscular HGB Conc 32.2 g/dl (31.0-37.0); Mean Corpuscular Hemoglobin 27.4 pg (25.0-35.0); Mean Corpuscular Volume 85 fL (80-100); Monocytes # (Auto) 0.9 Thou/mm3 (0.0-0.8); Monocytes % (Auto) 7 % (0-12); Neutrophils # (Auto) 9.7 Thou/mm3 (1.8-7.7); Neutrophils % (Auto) 82 % (37-80); Nucleated Red Blood Cell # 0.00 Thou/mm3 (0.00-0.00); Nucleated Red Blood Cell % 0 /100 WBC (0); Platelet Count 445 Thou/mm3 (140-440); RDW Standard Deviation 46.1 fL (36.4-46.3); Red Blood Count 5.03 Miln/mm3 (4.00-5.20); White Blood Count 11.9 Thou/mm3 (3.6-11.0)
[2024-11-23] MEDS: ONDANSETRON INJ 2 MG/ML INJ 2 ML 4 MG IVP (20:37)
[2024-11-23 20:47] LABS: INR 1.1 (0.9-1.3); Prothrombin Time 12.0 Seconds (9.0-12.2)
[2024-11-23 20:51] LABS: Alanine Aminotransferase 8 U/L (10-49); Albumin, Serum 4.1 gm/dL (3.4-4.8); Albumin/Globulin Ratio 1.3 (1.2-2.2); Alkaline Phosphatase 76 U/L (46-116); Anion Gap 12 (7-16); Aspartate Amino Transferase 22 U/L (0-34); BUN/Creatinine Ratio 26 Ratio (12-20); Bilirubin,Total 0.5 mg/dL (0.3-1.2); Blood Urea Nitrogen 26 mg/dL (9-23); Calcium 9.2 mg/dL (8.3-10.6); Calcium (Corrected) 9.2 mg/dL (8.5-10.1); Carbon Dioxide 27.5 mMol/L (20.0-31.0); Chloride 104 mMol/L (98-107); Creatinine (Component) 1.0 mg/dL (0.6-1.3); Estimated Creatinine Clearance 50.7 mL/min (>60); Globulin 3.1 gm/dL (2.3-3.5); Glucose 152 mg/dL (74-106); Osmolality,Calculated 292 (275-295); Potassium 4.3 mMol/L (3.4-5.1); Sodium 143 mMol/L (136-145); Total Protein 7.2 gm/dL (5.7-8.2); eGFR > 60 See Note
== END 2024-11-23 22:22 | disposition home or self-care (01) ==
PROVIDERS: Emergency Provider Emergency Medicine
DX: K29.71 Gastritis, unspecified, with bleeding (principal)
CPT/HCPCS: 36415; 80053; 85025; 85610; 96374; 96375; 99284; J2405; J2470

== ENCOUNTER 2024-11-25 17:05 | Emergency (ER) | payer MEDICARE, MEDICAID, SELFPAY ==
[2024-11-25 17:07] VITALS: BMI 27.1
[2024-11-25 17:24] VITALS: BP 106/71; PULSE 97; RESP 18; TEMP 36.3; O2SAT 96
--- NOTE | 2024-11-25 17:50 | XR_ITS ---
Examination: CT brain head without contrast. 2-D sagittal coronal reconstructions Date and time of exam:November 25, 2024 at 1803 hours Comparison February 11, 2014 INDICATIONS: Ataxia beginning 2 days ago CTDI: vol (mGy):49.2 DLP: (mGycm): Her 97 Technique: Multiple CT axial sections of the brain have been obtained, 5 mm slice thickness. Contrast has not been administered. 2-D sagittal, coronal reconstructions have been obtained Low dose protocols were performed. One or more of the following dose reduction techniques were used; automated exposure control, adjustment of the mA and/or KV according to patient size, use of iterative reconstruction technique. 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 Basal cisterns are not remarkable. Fourth ventricle is midline. Cranial vault intact. 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
--- NOTE | 2024-11-25 17:51 | PD.EDRME ---
Rapid Medical Screening Exam RME Arrival date/time: 11/25/24 17:05 Chief Complaint: General Adult/Misc Complain Time Seen by Provider: 11/25/24 17:19 Vital signs: Vital Signs Temperature 97.4 F 11/25/24 17:24 Pulse Rate 97 11/25/24 17:24 Respiratory Rate 18 11/25/24 17:24 Blood Pressure 106/71 11/25/24 17:24 Pulse Oximetry (%) 96 11/25/24 17:24 Oxygen Delivery Method Room Air 11/25/24 17:24 Vital signs reviewed by provider: Yes RME Narrative: 64-year-old female presents to the ED with a complaint of shaking. She was seen here on Sunday as well as earlier today. Earlier today her only complaint was nausea vomiting and left-sided abdominal pain. Her workup was essentially negative. CBC showed no significant abnormalities. CMP showed no significant abnormalities. Urinalysis revealed no evidence of UTI, however urine tox screen was positive for methamphetamine. Daughter is upset that no one addressed her shakiness which is new over the past week. I have greeted and performed a focused initial assessment of this patient. A comprehensive ED assessment and evaluation of the patient, analysis of all test results, and completion of the medical decision making process will be conducted by additional ED providers.
[2024-11-25 18:59] VITALS: BP 140/90; PULSE 94; RESP 20; TEMP 36.4; O2SAT 96
--- NOTE | 2024-11-25 19:03 | PD.EDRECHK ---
ED Recheck Abnl Lab Rx-RME/HPI General Chief Complaint: General Adult/Misc Complain Stated Complaint: SHAKING UNCONTROLLABY FOR PAST 48 HRS. Time Seen by Provider: 11/25/24 17:19 Arrival date/time: 11/25/24 17:05 Limitations: no limitations RME / HPI RME / HPI narrative: Dr. Shaw's Main ED Evaluation: 64yo female presents to the ED for a chief complaint of shakiness. Daughter states the patient started having nausea and vomiting 3 days ago. 2 days ago, she started having shakiness and was unable to sit up or stand on her own. Per daughter, patient normally is independent and can take care of herself. Daughter took the patient to her PCP and was told to come in for re-evaluation. Patient does smoke tobacco. Related Data Previous Rx's ?Medication ?Instructions ?Recorded atorvastatin 40 mg tablet 40 mg PO QHS #30 tabs 12/20/23 walker #1 ea 12/20/23 doxycycline hyclate 100 mg tablet 100 mg PO BID #14 tabs 04/03/24 bumetanide 1 mg tablet 1 mg PO QDAY #30 tabs 07/09/24 cyclobenzaprine 5 mg tablet 5 mg PO TID PRN muscle spasm #30 07/09/24 tabs metformin 500 mg tablet 500 mg PO BID #60 tabs 07/09/24 metoprolol succinate 25 mg 25 mg PO QDAY #30 tabs 07/09/24 tablet,extended release 24 hr ondansetron HCl 4 mg tablet 4 mg PO Q6H PRN nausea and 07/09/24 vomiting #90 tabs sacubitril 24 mg-valsartan 26 mg 1 tab PO BID #60 tabs 07/09/24 tablet (Entresto) spironolactone 25 mg tablet 25 mg PO QDAY #30 tabs 07/09/24 blood sugar diagnostic (Accutrend #50 ea 07/16/24 Glucose test strips) blood-glucose meter (Accu-Chek #1 ea 07/16/24 Guide Glucose Meter) lancets 23 gauge (Comfort EZ #100 ea 07/16/24 Lancets) ondansetron 4 mg disintegrating 4 mg PO Q6H PRN nausea and 11/23/24 tablet vomiting #20 tabs pantoprazole 40 mg tablet,delayed 40 mg PO QDAY #30 tabs 11/23/24 release (Protonix) Allergies Allergy/AdvReac Type Severity Reaction Status Date / Time Sulfa (Sulfonamide Allergy Severe SEVERE Verified 11/25/24 17:10 Antibiotics) RESPIRATORY PROBLEMS codeine Allergy Unknown Verified 11/25/24 17:10 Penicillins Allergy Unknown Verified 11/25/24 17:10 Review of Systems Review of Systems Systems Reviewed: All systems reviewed, normal except as documented Constitutional Comments: Past Medical History Past Medical History NEUROLOGIC: Negative Dementia, Alzheimer's Disease, Seizures, Epilepsy or Head Trauma CARDIAC: Positive Cardiac Disorders (HTN), Myocardial Infarction, Hypercholesterolemia, Congestive Heart Failure, Edema and Hypertension; Negative Angina RESPIRATORY: Positive Asthma; Negative Chronic Obstructive Pulmonary Disease (COPD) or Sleep Apnea GASTROINTESTINAL: Positive Ulcer; Negative Gastrointestinal Disorders, Gall Bladder Disease or Hemorrhoids GENITOURINARY: Negative Genitourinary Disorders or Renal Disease (KIDNEY STONES) REPRODUCTIVE: Negative Genital Herpes, Gonorrhea, Pelvic Inflammatory Disease or Syphilis MUSCULOSKELETAL: Positive Degenerative Disk Disease and Carpal Tunnel Syndrome; Negative Osteoporosis ENT: Negative Glaucoma, Ear Infection or Head Trauma ENDOCRINE: Positive Endocrine Disorders and Diabetes Mellitus Type 2; Negative Diabetes Mellitus Type 1 HEMATOLOGIC: Negative Blood Disorders, Anemia or Sickle Cell Disease PSYCHO/SOCIAL: Negative Depression, Anxiety or Post Traumatic Stress Disorder OTHER HISTORY: Negative Hospitalization, Falls, Blood Transfusions, Anesthesia Reactions, Chicken Pox, Cancer or Lung Cancer Family History FAMILY HISTORY: Negative Family Cardiac Disorders Surgical History SURGICAL: Positive Mastectomy and Section; Negative Cardiac Surgery, Open Heart Surgery, Cardiac Catheterization, Pacemaker, Endocrine Surgery, Ear Surgery, Abdominal Surgery, Nephrectomy or Joint Replacement Social History SMOKING STATUS: Current every day smoker SECOND HAND EXPOSURE: No SUBSTANCE USE: unknown ED Exam General Limitations: Present no limitations General appearance: Present alert and in no apparent distress Head Head exam: Present atraumatic Eye Eye exam: Present normal appearance, PERRL and EOMI ENT ENT exam: Present normal exam, normal oropharynx and mucous membranes moist Neck Neck exam: Present normal inspection, full ROM and trachea midline Chest Chest inspection: Present normal inspection and symmetric chest wall rise Respiratory Respiratory exam: Present normal lung sounds bilaterally Cardiovascular Cardiovascular exam: Present regular rate, normal rhythm and normal heart sounds Abdominal Exam Abdominal exam: Present soft and normal bowel sounds Extremities Exam Extremities exam: Present normal inspection and full ROM Back Exam Back exam: Present normal inspection and full ROM Neurological Exam Neurological exam: Present alert, oriented X3, CN II-XII intact and other (no dysarthria, no aphasia, no facial droop; normal medicaid billing clerk; normal sensations to the face, arms, and legs) Expanded Neurological Exam Patient oriented to: Present person, place and time Motor strength - LUE: 5/5 Motor strength - RUE: 5/5 Motor strength - LLE: 5/5 Motor strength - RLE: 5/5 Psychiatric Psychiatric exam: Present normal affect and normal mood Skin Skin exam: Present warm, dry, intact and normal color; Absent pallor or other (jaundice, petechiae) Course Quality Measures none Orders Category Date Time Status EKG (ED ONLY) *Do not use* NOW Care 11/25/24 19:12 Completed Straight [In and Out Catheter] X1 Care 11/25/24 21:[address] head/brain wo con Stat Exams 11/25/24 17:50 Completed CXRP [XR chest 1V portable] Stat Exams 11/25/24 19:12 Completed EKG (ED Only) Stat Exams 11/25/24 19:11 Draft CBC Stat Lab 11/25/24 20:05 Completed CMP [Comprehensive Metabolic Panel] Stat Lab 11/25/24 20:05 Completed Mag [Magnesium] Stat Lab 11/25/24 20:05 Completed Troponin I Stat Lab 11/25/24 20:05 Completed Urinalysis Stat Lab 11/25/24 21:40 Completed Aspirin Med 11/25/24 23:36 Discontinued 325 mg PO X1 ONE Vital Signs Vital signs: Vital Signs Temperature 97.4 F 11/25/24 17:24 Pulse Rate 97 11/25/24 17:24 Respiratory Rate 18 11/25/24 17:24 Blood Pressure 106/71 11/25/24 17:24 Pulse Oximetry (%) 96 11/25/24 17:24 Oxygen Delivery Method Room Air 11/25/24 17:24 Recheck / Abnormal Lab / Rx MDM Narrative MDM Narrative:: 64-year-old female with history of high cholesterol, diabetes, hypertension, amphetamine use presenting to the emergency department with difficulty walking that started 2 to 3 days ago. Emergency department the patient was seen by another provider and I was informed by the radiologist that the patient had an abnormal scan. The patient was immediately placed into a bed. Blood pressure is stable at 138/90, 96% on 1 L. NIH score is 3. Otherwise no aphasia, dysarthria, weakness, or sensory changes. No facial droop. While in the emergency department the patient had a CT scan, EKG that shows normal sinus rhythm and stable labs. Without evidence of anemia, thrombocytopenia, or elevated platelets. There is no documented trauma and otherwise the patient does not have an acute bleed but she does have a large infarct with some mass effect. I had a long discussion with the daughter and the patient and explained that the teleneurologist recommends neurocritical care ICU and patient and family agree. Scribe Attestation: 11/25/24 - Sarita Rey, am scribing for and in the presence of Dr. Shaw. 1851: Patient placed in a room. I went and evaluated the patient. Discussed CT head results with the patient and her daughter at bedside. Teleneurology initiated. 2132: Discussed case with Dr. Tidwell from teleneurology regarding consultation. Discussed patients ED course, exam findings, labs, and radiology results. Recommends full does aspirin, considering size of the infarct and mass effect, recommends admitting the patient to neuro critical care/ICU. Transfer process initiated. 2333: Discussed case with [facility]'s transfer center. Discussed patients ED course, exam findings, labs, and radiology results. Awaiting callback. 0000: No change in mental status the patient remains a GCS of 15. 0007: Dr. Esparza from [facility] accepts the patient for ED-ED transfer. Patient data External records reviewed:: [facility] previous records (Per chart review, patient was seen here earlier today for left kidney mass.) Clinical information provided by:: patient and family (daughter) Social determinants that could affect healthcare access:: substance use (tobacco and methamphetamine use) Patient has the following chronic illnesses:: DM, CHF, HTN, HLD, CKD How is presenting disease/condition affected by chronic disease/condition?: uneffected by Evaluation data The following diagnostics were reviewed and interpreted by me:: lab results, radiology exam(s) and EKG tracing(s) Lab and/or radiology exams considered but not ordered:: none Interpretation Summary: CBC normal, Glucose 131, Troponin 0.055, UA negative for UTI. EKG done at 1942, NSR, rate of 88, QTc: 477, poor R wave progression, no STEMI, according to my interpretation. [facility] Report Signed Patient: TRUDY LACEY Welliko. Record#: [id number] Birthdate: 1960 Age/Sex: 64 / F Location: [facility] Attending Dr: Ordering Physician: Sara Myers PA-C Date of Service: 11/25/24 Procedure(s): CT head/brain wo con Accession Number(s): [id number] cc: Mati Burnette MD; Ry Kyle MD; Sara Myers PA-C~ Examination: CT brain head without contrast. 2-D sagittal coronal reconstructions Date and time of exam:November 25, 2024 at 1803 hours Comparison February 11, 2014 INDICATIONS: Ataxia beginning 2 days ago CTDI: vol (mGy):49.2 DLP: (mGycm): Her 97 Technique: Multiple CT axial sections of the brain have been obtained, 5 mm slice thickness. Contrast has not been administered. 2-D sagittal, coronal reconstructions have been obtained Low dose protocols were performed. One or more of the following dose reduction techniques were used; automated exposure control, adjustment of the mA and/or KV according to patient size, use of iterative reconstruction technique. 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 Basal cisterns are not remarkable. Fourth ventricle is midline. Cranial vault intact. 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 Dictated By: Ry Kyle MD Signed By: <Electronically signed by Ry Kyle MD in [place]> 11/25/24 1850 [facility] Report Signed Patient: TRUDY LACEY Welliko. Record#: [id number] Birthdate: 1960 Age/Sex: 64 / F Location: [facility] Attending Dr: Ordering Physician: Noelle Soto MD Date of Service: 11/25/24 Procedure(s): XR chest 1V portable Accession Number(s): [id number] cc: Mati Burnette MD; Ry Kyle MD; Noelle Soto MD~ Examination: AP chest single view Technique one AP portable upright chest single view COMPARISON: November 04, 2024 INDICATIONS: Left cerebellar stroke on examination today. FINDINGS: Normal heart size No aspiration pneumonia Stable granuloma right upper lobe Poorly defined nodule in the left upper lobe noted on the chest film November 04, 2024 Prominent osteopenia Please see the CT chest report October 22, 2024 IMPRESSION: No aspiration pneumonia Dictated By: Ry Kyle MD Signed By: <Electronically signed by Ry Kyle MD in [place]> 11/25/242057 Medications / Prescriptions Medications or Prescriptions considered but not ordered:: none Medication administrations:: Medication Administration History Discontinued Medications Aspirin (Aspirin 325 Mg Tablet) 325 mg PO X1 ONE Stop: 11/25/24 23:37 Last Admin: 11/26/24 00:20 Dose: 325 mg Documented By: SM see above Consultations Consultation(s) initiated? (list below): Yes Diagnosis Recheck Differential Diagnosis: other (stroke, electrolyte abnormality, drug use, viral syndrome, severe dehydration, metastatic disease from known renal mass, cerebellar infarct) Most likely diagnosis given after review of the tests above:: cerebellar infarct Admission Indicated Admission indicated?: not indicated Explain why admission is indicated or not indicated:: Patient requires a higher [id number]. Admission Request Was there a request for admission?: No Disposition Plan Disposition Plan: Transfer Critical Care Time Critical Care Time Critical Care Time: Yes Total Critical Care Time (min.): 45 Attestation: The high probability of sudden, clinically significant deterioration in the patient?s condition required the highest level of my preparedness to intervene urgently. The services I provided to this patient were to treat and/or prevent clinically significant deterioration. Services included the following: chart data review, reviewing nursing notes and/or old charts, documentation time, personal consultant collaboration regarding findings and treatment options, medication orders and management, direct patient care, vital sign assessments and ordering, interpreting and reviewing diagnostic studies and lab tests. Aggregate critical care time includes only time during which I was engaged in work directly related to the patient?s care, as described above, whether at bedside or elsewhere in the Emergency Department. It did not include time spent performing other reported procedures or the services of residents, students, nurses or physician assistants. Discharge Plan Plan Patient Disposition: [facility] ([place], [place]) Facility Pt Being Transferred to: [facility] Service Needed for Transfer: Neurology Discharge Disposition comment: Neuro critical care unit Prescriptions/Referrals Prescriptions/Med Rec: No Action atorvastatin 40 mg tablet 40 mg PO QHS Qty: 30 3RF (DME) walker Misc See Rx Instructions .Route Qty: 1 0RF Rx Instructions: WALKER WITH SEAT: The patient has dyspnea on walking 7-8 steps and needs to seat after that. So please provide walker with seat. ondansetron HCl 4 mg tablet 4 mg PO Q6H PRN (Reason: nausea and vomiting) Qty: 90 0RF cyclobenzaprine 5 mg tablet 5 mg PO TID PRN (Reason: muscle spasm) Qty: 30 0RF metoprolol succinate 25 mg tablet extended release 24 hr 25 mg PO QDAY Qty: 30 0RF metformin 500 mg tablet 500 mg PO BID Qty: 60 0RF spironolactone 25 mg tablet 25 mg PO QDAY Qty: 30 0RF Entresto 24-26 mg tablet 1 tab PO BID Qty: 60 0RF bumetanide 1 mg tablet 1 mg PO QDAY Qty: 30 0RF (DME) Accutrend Glucose test strips Strip See Rx Instructions .Route Qty: 50 6RF Rx Instructions: As directed (DME) blood-glucose meter [Accu-Chek Guide Glucose Meter] [facility] See Rx Instructions .Route Qty: 1 0RF Rx Instructions: As directed (DME) Comfort EZ Lancets 23 gauge misc See Rx Instructions .Route Qty: 100 6RF Rx Instructions: As directed doxycycline hyclate 100 mg tablet 100 mg PO BID Qty: 14 0RF ondansetron 4 mg tablet,disintegrating 4 mg PO Q6H PRN (Reason: nausea and vomiting) Qty: 20 0RF pantoprazole [Protonix] 40 mg tablet,delayed release (DR/EC) 40 mg PO QDAY Qty: 30 0RF Referrals: Mati Burnette MD [Primary Care Provider] - In 1 week Problem List Clinical Impression: Cerebellar infarct Patient/Caregiver Discharge Instructions Print Language: Peruvian Stand Alone Forms: Johanna Award Info., Patient Portal Info Letter
--- NOTE | 2024-11-25 19:11 | EKG_ITS ---
[facility] Test Date: 2024-11-25 Pat Name: TRUDY LACEY Department: Room: - Gender: Female Healthcare Prof: : 1960 Requested By: Noelle Snell Order Number: [id number] Reading MD: Noelle Snell Measurements Intervals [place] Rate: 88 P: AR: QRS: 7 QRSD: 102 T: 61 QT: 393 QTc: 477 Interpretive Statements ATRIAL FIBRILLATION PROBABLE ANTERIOR MYOCARDIAL INFARCTION , OF INDETERMINATE AGE [35 ms Q WAVE IN V3/V4] Compared to ECG 11/25/2024 12:43:17 Sinus rhythm no longer present Myocardial infarct finding still present /store/S0/[id number]/ecg/[id number].pdf
--- NOTE | 2024-11-25 19:12 | XR_ITS ---
Examination: AP chest single view Technique one AP portable upright chest single view COMPARISON: November 04, 2024 INDICATIONS: Left cerebellar stroke on examination today. FINDINGS: Normal heart size No aspiration pneumonia Stable granuloma right upper lobe Poorly defined nodule in the left upper lobe noted on the chest film November 04, 2024 Prominent osteopenia Please see the CT chest report October 22, 2024 IMPRESSION: No aspiration pneumonia
[2024-11-25 19:54] VITALS: BP 117/75; PULSE 94; PULSE 95; RESP 16; O2SAT 96
[2024-11-25 20:18] LABS: Basophils # (Auto) 0.0 Thou/mm3 (0.0-0.2); Basophils % (Auto) 0 % (0-2.5); Eosinophils # (Auto) 0.0 Thou/mm3 (0.0-0.5); Eosinophils % (Auto) 0 % (0-10); Hematocrit 43.1 % (36.0-46.0); Hemoglobin 14.0 g/dL (12.0-16.0); Immature Granulocytes Auto 0.02 Thou/mm3 (0.00-0.00); Lymphocytes # (Auto) 1.9 Thou/mm3 (1.0-4.8); Lymphocytes % (Auto) 20 % (10-50); Mean Corpuscular HGB Conc 32.5 g/dl (31.0-37.0); Mean Corpuscular Hemoglobin 27.8 pg (25.0-35.0); Mean Corpuscular Volume 86 fL (80-100); Monocytes # (Auto) 1.1 Thou/mm3 (0.0-0.8); Monocytes % (Auto) 12 % (0-12); Neutrophils # (Auto) 6.2 Thou/mm3 (1.8-7.7); Neutrophils % (Auto) 67 % (37-80); Nucleated Red Blood Cell # 0.00 Thou/mm3 (0.00-0.00); Nucleated Red Blood Cell % 0 /100 WBC (0); Platelet Count 392 Thou/mm3 (140-440); RDW Standard Deviation 46.5 fL (36.4-46.3); Red Blood Count 5.04 Miln/mm3 (4.00-5.20); White Blood Count 9.3 Thou/mm3 (3.6-11.0)
[2024-11-25 20:45] LABS: Alanine Aminotransferase < 7 U/L (10-49); Albumin, Serum 4.2 gm/dL (3.4-4.8); Albumin/Globulin Ratio 1.3 (1.2-2.2); Alkaline Phosphatase 76 U/L (46-116); Anion Gap 9 (7-16); Aspartate Amino Transferase 19 U/L (0-34); BUN/Creatinine Ratio 26 Ratio (12-20); Bilirubin,Total 0.7 mg/dL (0.3-1.2); Blood Urea Nitrogen 23 mg/dL (9-23); Calcium 9.5 mg/dL (8.3-10.6); Calcium (Corrected) 9.5 mg/dL (8.5-10.1); Carbon Dioxide 27.5 mMol/L (20.0-31.0); Chloride 101 mMol/L (98-107); Creatinine (Component) 0.9 mg/dL (0.6-1.3); Estimated Creatinine Clearance 56.7 mL/min (>60); Globulin 3.2 gm/dL (2.3-3.5); Glucose 131 mg/dL (74-106); Magnesium 1.8 mg/dL (1.6-2.6); Osmolality,Calculated 279 (275-295); Potassium 4.5 mMol/L (3.4-5.1); Sodium 137 mMol/L (136-145); Total Protein 7.4 gm/dL (5.7-8.2); eGFR > 60 See Note
[2024-11-25 20:48] LABS: Troponin I 0.055 ng/mL (0.0-0.045)
--- NOTE | 2024-11-25 20:59 | PC.NURSE ---
TELE NEURO WAS ACTIVATED. TELE NEURO DOCTOR HAS STILL NOT APPEARED ON TELE NEURO CART. THIS RN ASKED [facility] TECH TO REACTIVE TELE NEURO AROUND 1999 WITH NO LUCK. PROVIDER WAS NOTIFIED ABOUT NO TELE NEURO DOCTOR
--- NOTE | 2024-11-25 21:06 | PC.NURSE ---
DR. SAVANNAH BARRIOS TELE NEURO ASSESSING PT
--- NOTE | 2024-11-25 21:20 | PC.NURSE ---
PT REPORTS NEW ONSET OF BLURRY VISION AND A HEADACHE. TELE NEURO DR. BARRIOS AT BEDSIDE WAS NOTIFIED OF NEW SYMPTOMS
[2024-11-25 21:43] VITALS: BP 131/91; PULSE 93; RESP 15
--- NOTE | 2024-11-25 21:45 | PD.TNEURO ---
Tele Neuro Consultation Consultation Date 11/25/24 Most Recent Vital Signs Last Vital Signs Temp 97.6 F 11/25/24 18:59 Pulse 93 11/25/24 21:43 Resp 15 11/25/24 21:43 BP 131/91 H 11/25/24 21:43 Pulse Ox 16 L 11/25/24 21:43 O2 Del Method Room Air 11/25/24 21:43 Consultation Narrative [facility] TeleNeurology Consult Services Stat Consult Patient Name:???Germania Avina Date of :???1960 Identification Number:??? Date of Service:???11/25/2024 19:01:22 Diagnosis:?I63.89 - Cerebrovascular accident (CVA) due to other mechanism ([facility]) Impression 64 yo RH F with h/o diabetes, methamphetamine use, CHF, CKD, renal cell carcinoma (biopsy declined, possibly still active), asthma, depression, osteoarthritis, presenting with shakiness, incoordination, inability to walk, nausea, vomiting for 3 days. This is her third presentation to the ED since this all started as the first couple of times she had only reported nausea and vomiting and she did not have obvious dysmetria. Finally, daughter came with her the third time reporting the shakiness and incoordination and on exam she does indeed have left-sided dysmetria as well as I think some left leg weakness. CT head with large acute L cerebellar infarcts which I think accounts for all of her symptoms including the nausea and vomiting. At this point, she is well out of the window for any emergent intervention. She needs to be admitted for a full stroke workup and for swell watch. She needs to be in an ICU setting, ideally neuro ICU. Neurosurgery should be on board in case she needs emergent decompression as she is now getting into peak swell window over these next couple of days. She should have sodium checked q6, with goal Na 140-145, 3% hypertonic saline as needed. She has a good exam clinically, but I would still follow her with serial imaging as well, with MRI in the morning or if not able then repeat CT head without contrast in the morning which will be 12h from last scan, to monitor for any progression of swelling. Otherwise, usual stroke workup with vessel imaging (CTA head/neck or MRA head/neck), echocardiogram, lipid panel, A1c as soon as possible. She can have ASA x 1 for today, further doses pending repeat imaging (i.e. can continue if repeat imaging is stable). Case discussed with ED Dr. Soto by phone and patient's daughter on video at bedside. Recommendations: Our recommendations are outlined below. Diagnostic Studies : MRI head without contrast CTA head/neck or MRA head/neck She needs repeat imaging in the morning. If MRI cannot be done in the morning, then repeat head CT without contrast Laboratory Studies : Lipid panel Hemoglobin A1c Antithrombotic Medication : ASA 81 x 1 for today, further doses pending repeat imaging tomorrow She is already normotensive and can stay here as she is already 3 days out from symptoms Nursing Recommendations : IV Fluids, avoid dextrose containing fluids, Maintain euglycemia Neuro checks q4 hrs x 24 hrs and then per shift Head of bed 30 degrees Continue with Telemetry Consultations : Recommend Speech therapy if failed dysphagia screen Physical therapy/Occupational therapy Inpatient rehab if recommended by physical/occupational therapy Disposition : Neurology will follow Miscellaneous : Needs to be in an ICU setting with q1 neurochecks, ideally a neuro ICU Neurosurgery ideally should be on board in case of need for decompressive surgery Q6 sodium checks, goal Na 140-145, 3% hypertonic saline if needed Metrics: Dispatch Time: 11/25/2024 19:01:22 Callback Response Time: 11/25/2024 19:02:02 Primary Provider Notified of Diagnostic Impression and Management Plan on: 11/25/2024 21:33:25 CT HEAD: I personally reviewed all the CT images that were available to me and it showed:?Large acute L cerebellar stroke Chief Complaint: shakiness, incoordination, and inability to walk History of Present Illness:Patient is a 64 year old Female. 64 yo RH F with h/o diabetes, methamphetamine use, CHF, CKD, renal cell carcinoma (biopsy declined, possibly still active), asthma, depression, osteoarthritis, presenting with shakiness, incoordination, and inability to walk. LKN sometime Sunday. Overnight she became nauseated and started vomiting. Sunday morning she was shaky and incoordinated. She had been in bed all day long and was shaky. Daughter called EMS and she was brought here. She only reported nausea/vomiting and she was treated for gastritis and discharged home. Yesterday daughter went to check on her again and pt reported she still couldn't get up. Daughter gave her some bland food and her medications. She ate fine last night, no dysphagia. This morning she still couldn't get up to get into the car. Sent grandson here with pt but he didn't relay the symptoms and so she was treated for abdominal pain but again not assessed for uncontrolled movements and was discharged again. Daughter then came and checked her right back in at the dental front office assistant. The weakness has improved a bit over the past couple of days but can't hold herself up. Never had anything like this before. She has a bad holocephalic headache that started today. Her vision is blurrier than usual in both eyes. No speech changes. CT head with large acute L cerebellar infarcts. ? Past Medical History: ?Diabetes Mellitus Other PMH:? methamphetamine use, CHF, CKD, renal cell carcinoma, asthma, depression, osteoarthritis Medications: No Anticoagulant use? No Antiplatelet use Reviewed EMR for current medications Allergies:? Reviewed Social History: Drug Use: Yes Family History: There is no family history of premature cerebrovascular disease pertinent to this consultation ROS : 14 Points Review of Systems was performed and was negative except mentioned in HPI. Past Surgical History: There Is No Surgical History Contributory To Today?s Visit ? Examination: BP(117/75),?Pulse(94),?Blood Glucose(131) 1A: Level of Consciousness - Alert; keenly responsive?+ 0 1B: Ask Month and Age - Both Questions Right?+ 0 1C: Blink Eyes & Squeeze Hands - Performs Both Tasks?+ 0 2: Test Horizontal Extraocular Movements - Normal?+ 0 3: Test Visual Watkins - No Visual Loss?+ 0 4: Test Facial Palsy (Use Grimace if Obtunded) - Normal symmetry?+ 0 5A: Test Left Arm Motor Drift - No Drift for 10 Seconds?+ 0 5B: Test Right Arm Motor Drift - No Drift for 10 Seconds?+ 0 6A: Test Left Leg Motor Drift - Drift, but doesn't hit bed?+ 1 6B: Test Right Leg Motor Drift - No Drift for 5 Seconds?+ 0 7: Test Limb Ataxia (FNF/Heel-Hidalgo) - Ataxia in 2 Limbs?+ 2 8: Test Sensation - Normal; No sensory loss?+ 0 9: Test Language/Aphasia - Normal; No aphasia?+ 0 10: Test Dysarthria - Normal?+ 0 11: Test Extinction/Inattention - No abnormality?+ 0 NIHSS Score:?3 NIHSS Free Text : No nystagmus Spoke with :?Dr. Soto This consult was conducted in real time using interactive audio and video technology. Patient was informed of the technology being used for this visit and agreed to proceed. Patient located in hospital and provider located at home/office setting. Patient is being evaluated for possible acute neurologic impairment and high probability of imminent or life - threatening deterioration.I spent total of 45 minutes providing care to this patient, including time for face to face visit via telemedicine, review of medical records, imaging studies and discussion of findings with providers, the patient and / or family. Dr Chaya Tidwell [facility] For Inpatient follow-up with [facility] physician please call [facility] at . As we are not an outpatient service for any post hospital discharge needs please contact the hospital for assistance. If you have any questions for the [facility] physicians or need to reconsult for clinical or diagnostic changes please contact us via [facility] at . ?
[2024-11-25 21:49] LABS: Collection Type, Urine Voided
[2024-11-25 21:54] LABS: Bilirubin,Urine Negative (Negative); Blood,Urine Negative (Negative); Clarity,Urine Clear (Clear/Hazy); Color,Urine Yellow (Lt Yel-Yel); Glucose, Urine 4+ (Negative); Ketones,Urine Negative (Negative); Leukocyte Esterase,Urine Negative (Negative); Nitrite,Urine Negative (Negative); PH,Urine 6.0 (5.0-7.0); Protein,Urine 1+ (Neg - Trace); RBC,Urine < 1 /hpf (0-3); Squamous Epithelial Cell,Urine < 1 /hpf (0-5); Urobilinogen,Urine Negative mg/dL (0.0-1.0); WBC,Urine 4 /hpf (0-5)
[2024-11-25 21:57] LABS: Specific Gravity,Urine 1.015 (1.001-1.035)
[2024-11-25 23:36] VITALS: BP 135/87; PULSE 88; RESP 21; O2SAT 95
--- NOTE | 2024-11-26 00:08 | PC.NURSE ---
[facility] contacted for transfer state they dont have NEURO ICU [facility] Contacted at [phone] Accepts at [phone] ED to ED MD Esparza for neuro critical care, Report to be called at
[2024-11-26 00:13] VITALS: BP 138/90; PULSE 94; RESP 23; TEMP 36.8; O2SAT 94
--- NOTE | 2024-11-26 00:42 | PC.NURSE ---
PT BROUGHT IN TO THE ER BY [facility] FOR WEAKNESS THAT STARTED SUNDAY. PT STATES SHE WENT TO THE ER YESTERDAY FOR N/V BUT THEY DID NOT ASSESS HER WEAKNESS AND SHAKINESS. PT RETURNED TO THE ED TODAY FOR WEAKNESS. PER DR. BECKETT REQUEST, TELE NEURO WAS ACTIVATED. TELE NEURO WAS ACTIVATED AT 1900 BUT NEURO PROVIDER WASNT ON SCREEN UNTIL 2105.
--- NOTE | 2024-11-26 00:44 | PC.NURSE ---
PT ASKED FOR FOOD. DR CARO WAS ASKED IF PT CAN EAT. PROVIDER STATES THAT THE PATIENT CANT EAT
[2024-11-26 01:44] VITALS: BP 128/91; PULSE 94; RESP 19; O2SAT 93
[2024-11-26 01:55] VITALS: BP 128/91; PULSE 94; RESP 19; TEMP 36.8; O2SAT 93
== END 2024-11-26 01:59 | disposition short-term general hospital (02) ==
PROVIDERS: Emergency Provider Emergency Medicine; PCP Internal Medicine
DX: I63.9 Cerebral infarction, unspecified (principal); R27.0 Ataxia, unspecified; I48.91 Unspecified atrial fibrillation; R22.0 Localized swelling, mass and lump, head; E11.22 Type 2 diabetes mellitus with diabetic chronic kidney disease; I13.0 Hypertensive heart and chronic kidney disease with heart failure and stage 1 through stage 4 chronic kidney disease, or unspecified chronic kidney disease; N18.9 Chronic kidney disease, unspecified; I50.9 Heart failure, unspecified; Z79.84 Long term (current) use of oral hypoglycemic drugs; Z75.1 Person awaiting admission to adequate facility elsewhere; F17.210 Nicotine dependence, cigarettes, uncomplicated; E78.00 Pure hypercholesterolemia, unspecified; I25.2 Old myocardial infarction; R29.703 NIHSS score 3
CPT/HCPCS: 51701; 36415; 70450; 71045; 80053; 81001; 83735; 84484; 85025; 93005; 99283; A9270

== ENCOUNTER → 2025-02-25 | Outpatient (CLI) | payer MEDICARE, MEDICAID, SELFPAY ==
--- NOTE | 2025-02-25 09:30 | XR_ITS ---
Examination: CT brain head without contrast. 2-D sagittal coronal reconstructions Date and time of exam: February 25, 2025, 0920 hours, comparison November 25, 2024 INDICATIONS: History of stroke 2 months ago with nausea vomiting head pain 2 months CTDI: vol (mGy): 49.7 DLP: (mGycm): 991 Technique: Multiple CT axial sections of the brain have been obtained, 5 mm slice thickness. Contrast has not been administered. 2-D sagittal, coronal reconstructions have been obtained Low dose protocols were performed. One or more of the following dose reduction techniques were used; automated exposure control, adjustment of the mA and/or KV according to patient size, use of iterative reconstruction technique. Findings: No significant ventricular enlargement. Extensive encephalomalacia left cerebellar hemisphere Milder encephalomalacia posterior right parietal lobe Intra-axial or extra-axial hemorrhage density is not seen. No mass effect or midline shift Basal cisterns are not remarkable. Fourth ventricle is midline. Cranial vault intact. Impression: Negative for acute hemorrhage, mass effect or midline shift
== END | disposition home or self-care (01) ==
PROVIDERS: PCP Hospitalist; Referring Provider Psychiatry & Neurology Neurology; Visit Provider Psychiatry & Neurology Neurology
DX: I63.9 Cerebral infarction, unspecified (principal)
CPT/HCPCS: 70450